=== PATIENT | male | born 1965 | race Caucasian/White ===

== ENCOUNTER → 2018-08-06 14:34 | Outpatient (CLI) | payer OTHER, SELFPAY ==
[2018-08-06 16:11] LABS: Alanine Aminotransferase 30 IU/L (21-72); Albumin 4.7 g/dL (3.5-5.0); Alkaline Phosphatase 45 U/L (38-126); Aspartate Aminotransferase 24 IU/L (17-59); BUN Creatinine Ratio 22.2 (6-22); Bilirubin Total 1.1 mg/dL (0.2-1.3); Blood Urea Nitrogen 20 mg/dL (9-20); Calcium 9.3 mg/dL (8.4-10.2); Carbon Dioxide 25 mmol/L (22-32); Chloride 104 mmol/L (98-107); Cholesterol 230 mg/dL (140-199); Estimated Glomerular Filt Rate > 60.0 mL/min (>60); Globulin 2.4 g/dL (1.7-4.1); Glucose 81 mg/dL (70-100); HDL Cholesterol 44 mg/dL (40-60); HEMOLYSIS < 15 (0-50); LDL Cholesterol Calculated 158 mg/dL (<100); Potassium 4.2 mmol/L (3.4-5.1); Sodium 140 mmol/L (137-145); Total Protein 7.1 g/dL (6.3-8.2); Triglycerides 140 mg/dL (35-150)
[2018-08-06 16:39] LABS: Prostate Specific Antigen Scrn 0.756 ng/mL (0.1-4.0)
[2018-08-06 16:56] LABS: Thyroid Stimulating Hormone 1.38 uIU/mL (0.47-4.68)
[2018-08-06 17:09] LABS: Appearance Urine UA CLEAR; Bilirubin Urine UA NEGATIVE (NEGATIVE); Color Urine UA YELLOW; Glucose Urine UA NEGATIVE (Negative); Ketones Urine UA NEGATIVE (NEGATIVE); Leukocyte Esterase Urine UA NEGATIVE (NEGATIVE); Nitrite Urine UA NEGATIVE (Negative); Occult Blood Urine UA TRACE-INTACT (Negative); Protein Urine UA NEGATIVE (Negative); Specific Gravity Urine UA >=1.030 (1.000-1.035); Urobilinogen Urine UA 0.2 E.U./dL (0.2); pH Urine UA 5.5 (4.5-8.0)
== END ==
PROVIDERS: PCP Family Medicine; Visit Provider Family Medicine
DX: E78.5 Hyperlipidemia, unspecified (principal); I10 Essential (primary) hypertension; Z12.5 Encounter for screening for malignant neoplasm of prostate; Z13.29 Encounter for screening for other suspected endocrine disorder; Z51.81 Encounter for therapeutic drug level monitoring
CPT/HCPCS: 36415; 80053; 80061; 81003; 84443; G0103

== ENCOUNTER → 2019-02-09 15:36 | Outpatient (CLI) | payer OTHER, SELFPAY ==
--- NOTE | 2019-02-09 15:40 | DI.US.S_ITS ---
PROCEDURE: US SCROTUM INDICATIONS: CYSTIC SWELLING TECHNIQUE: Real-time scanning was performed of the scrotum and testicles, with image documentation. Color and pulse Doppler interrogation was performed of both testicles. COMPARISON: None. FINDINGS: Right: Testicle is normal in size at 4.9 x 2.6 x 3.3 cm, and homogenous in echotexture. Epididymis is normal in overall size and morphology. No hydrocele or varicoceles. Overlying scrotal skin is normal in thickness. Left: Testicle is normal in size at 5.0 x 2.7 x 3.7 cm, and homogeneous in echotexture. Large left spermatocele measuring 7.0 x 3.5 cm No hydrocele or varicoceles. Overlying scrotal skin is normal in thickness. Doppler: Color and pulse Doppler demonstrate normal and symmetric arterial flow in both testicles. IMPRESSION: Large left spermatocele; otherwise normal appearance of the testicles bilaterally. Dictated by: Fco COOK Interpreted: Lauren Ferraro MD on 02/09/2019 at 16:19 Approved by: Lauren Ferraro MD, PhD on 02/09/2019 at 17:27
== END ==
PROVIDERS: PCP Family Medicine; Visit Provider Hospitalist
DX: N50.89 Other specified disorders of the male genital organs (principal); N43.40 Spermatocele of epididymis, unspecified
CPT/HCPCS: 76870

== ENCOUNTER → 2019-02-14 08:53 | Outpatient (CLI) | payer OTHER, SELFPAY ==
[2019-02-14 11:01] LABS: Alanine Aminotransferase 23 IU/L (21-72); Albumin 4.3 g/dL (3.5-5.0); Albumin Globulin Ratio 2.2 (1.0-2.8); Alkaline Phosphatase 40 U/L (38-126); Aspartate Aminotransferase 20 IU/L (17-59); BUN Creatinine Ratio 22.5 (6-22); Bilirubin Total 0.7 mg/dL (0.2-1.3); Blood Urea Nitrogen 18 mg/dL (9-20); Calcium 9.4 mg/dL (8.4-10.2); Carbon Dioxide 27 mmol/L (22-32); Chloride 103 mmol/L (98-107); Cholesterol 147 mg/dL (140-199); Estimated Glomerular Filt Rate > 60.0 mL/min (>60); Glucose 93 mg/dL (70-100); HDL Cholesterol 43 mg/dL (40-60); HEMOLYSIS < 15 (0-50); LDL Cholesterol Calculated 74 mg/dL (<100); Potassium 4.2 mmol/L (3.4-5.1); Sodium 139 mmol/L (137-145); Total Protein 6.3 g/dL (6.3-8.2); Triglycerides 152 mg/dL (35-150)
== END ==
PROVIDERS: PCP Family Medicine; Visit Provider Family Medicine
DX: E78.5 Hyperlipidemia, unspecified (principal); I10 Essential (primary) hypertension
CPT/HCPCS: 36415; 80053; 80061

== ENCOUNTER 2019-06-16 11:47 | Day surgery (SDC) | payer OTHER, SELFPAY ==
[2019-06-16 12:07] VITALS: BP 146/88; PULSE 99; RESP 20; TEMP 36.6; O2SAT 100; BMI 26.2
[2019-06-16] MEDS: SODIUM CHLORIDE 0.9% 1,000 ML 200 ML IV (12:14)
--- NOTE | 2019-06-16 12:58 | PM.HP.1 ---
History of Present Illness History of Present Illness Date Patient Seen: 06/16/19 Time Patient Seen: 13:00 Chief complaint: [id number] Narrative: Patient presents for colorectal screening. They have never had any previous examination for such. No personal or family history of colon cancer. On further history denies any recent gastrointestinal symptoms. No nausea, vomiting, abdominal pain, loss of appetite, unexplained weight loss, change in bowel habits, diarrhea, constipation, melena, hematochezia, or bright red blood per rectum. Patient History Medical History (Updated 06/16/19 @ 13:01 by Tommy Lamb MD) HTN (hypertension) (Inactive) Hyperlipidemia (Inactive) Spermatocele (Inactive) Family & Social History Social History: household members spouse Tobacco & Substance use: Smoking Status Never smoker Meds Home Medications and Allergies Home Medications Medication Instructions Recorded Confirmed Type atorvastatin 10 mg tablet 10 mg PO HS #90 tab 02/15/19 02/15/19 Rx lisinopril 10 mg tablet 10 mg PO QDAY #90 tab 02/15/19 02/15/19 Rx Allergies Allergy/AdvReac Type Severity Reaction Status Date / Time Corticosteroids Allergy Mild LIMB Verified 06/16/19 11:59 (Glucocorticoids) NUMBNESS [CORTICOSTEROIDS (GLUCOCORTICOIDS)] Review of Systems Review of Systems Narrative: A complete review of systems is negative except as noted in the HPI Exam Vital Signs (past 8 hours): - 06/16/19 12:07 Temperature 97.9 F Pulse Rate 99 H Respiratory Rate 20 Blood Pressure 146/88 H Pulse Oximetry 100 Oxygen Delivery Method Room Air Narrative Exam Narrative: General-no acute distress, well nourished HEENT-moist mucous membranes, no scleral icterus Neck-supple, no lymphadenopathy Chest- non labored respirations, clear to auscultation bilaterally Cardiac-regular rate no peripheral edema Abdomen-soft, nontender, non distended Extremities-warm, well perfused Neurological-alert and oriented, no focal deficits Assessment & Plan Assessment and plan (1) Screening for colon cancer: Current visit: Yes Status: Acute Assessment & Plan narrative: The patient requires colorectal screening and colonoscopy is recommended. Technical details were discussed. Risks, benefits, alternatives explained. Risks including but not limited to myocardial infarction, aspiration, bleeding, pain, missed lesion, incomplete examination, need for further radiographic studies, colonic perforation, and need for major abdominal surgery were discussed. All questions were answered to their satisfaction, and they are in agreement with this plan.
[2019-06-16] MEDS: fentaNYL 250 MCG/5 ML INJ IV (13:36)
[2019-06-16] MEDS: MIDAZOLAM 5 MG/5 ML VIAL IV (13:36)
--- NOTE | 2019-06-16 13:36 | PM.OP.ENDO ---
Operative Date/Time/Diagnoses Date of procedure: 06/16/19 Time of procedure: 13:36 Pre-op diagnosis: Screening colonoscopy Post-op diagnosis: same Procedure & Clinicians Study performed: Colonoscopy Same procedure as scheduled: Yes Indications: 53-year-old male no prior colonoscopy presents for routine screening. Surgeon: Tommy Lamb Procedure Notes SCOAP/Timeout: Performed Procedure in detail: Patient placed in left lateral decubitus position. Time out was performed. Procedural sedation was administered with Versed and Fentanyl. A rectal exam demonstrated no external hemorrhoids no internal masses. Colonoscopy scope was placed into the rectum and advanced through the colon to the cecum. The ileocecal valve was identified. The scope was then slowly withdrawn examining colon thoroughly in all directions. The colonoscopy was notable for the following 1. Grade 1 internal hemorrhoids. 2. The quality of prep excellent 3. No colon or rectal masses. Scope withdrawal time: 6 Sedation minutes: 20 Findings: diverticulosis and internal hemorrhoids Specimen(s): none sent Complications: none Impression: Normal colonoscopy Post-procedure Recommendations: Colonscopy in 10 years Disposition: same day surgery
[2019-06-16 13:37] VITALS: BP 125/85; PULSE 86; RESP 11; TEMP 36; O2SAT 96
[2019-06-16 13:42] VITALS: BP 111/78; PULSE 75; RESP 11; O2SAT 97
[2019-06-16 13:48] VITALS: BP 126/92; PULSE 97; RESP 16; O2SAT 98
[2019-06-16 14:06] VITALS: BP 118/78; PULSE 83; RESP 16; TEMP 36.4; O2SAT 96
== END 2019-06-16 14:09 | disposition home or self-care (01) ==
PROVIDERS: PCP Family Medicine; Visit Provider Surgery
PROC: 0DJD8ZZ Inspection of Lower Intestinal Tract, Via Natural or Artificial Opening Endoscopic (ICD-10-PCS; CPT 45378; principal; 2019-06-16 13:00)
DX: Z12.11 Encounter for screening for malignant neoplasm of colon (principal); I10 Essential (primary) hypertension; E78.5 Hyperlipidemia, unspecified; K64.0 First degree hemorrhoids; K57.30 Diverticulosis of large intestine without perforation or abscess without bleeding
CPT/HCPCS: 45378; 99152; J2250; J3010

== ENCOUNTER → 2020-04-27 11:33 | Outpatient (CLI) | payer OTHER, SELFPAY ==
[2020-04-27 12:04] LABS: Add Manual Diff / Slide Review NO; Basophils Absolute Auto 0 /uL (0-100); Basophils Percent Auto 0.7 % (0-2); Eosinophils Absolute Auto 100 /uL (0-450); Eosinophils Percent Auto 1.9 % (2-4); Hematocrit 46.5 % (41-53); Hemoglobin 15.8 g/dL (13.5-17.5); Lymphocytes Absolute Auto 1800 /uL (1100-4500); Lymphocytes Percent Auto 30.4 % (25-40); Mean Corpuscular HGB Conc 33.9 % (30-36); Mean Corpuscular Hemoglobin 31.7 PG (26-34); Mean Corpuscular Volume 93.5 fL (80-100); Monocytes Absolute Auto 700 /uL (0-900); Monocytes Percent Auto 11.4 % (3-14); Neutrophils Absolute Auto 3300 /uL (1500-7000); Neutrophils Percent Auto 55.6 % (50-75); Platelet Count 217 X10^3/uL (150-400); Red Blood Cell Count 4.97 X10^6/uL (4.5-5.9); Red Cell Distribution Width 12.8 % (11.6-14.8); White Blood Cell Count 5.8 X10^3/uL (4.5-11.0)
[2020-04-27 12:50] LABS: Appearance Urine UA CLEAR; Bilirubin Urine UA NEGATIVE (NEGATIVE); Color Urine UA YELLOW; Glucose Urine UA NEGATIVE (Negative); Ketones Urine UA NEGATIVE (NEGATIVE); Leukocyte Esterase Urine UA NEGATIVE (NEGATIVE); Nitrite Urine UA NEGATIVE (Negative); Occult Blood Urine UA 1+ (Negative); Protein Urine UA NEGATIVE (Negative); Specific Gravity Urine UA 1.025 (1.000-1.035); Urobilinogen Urine UA 0.2 E.U./dL (0.2)
[2020-04-27 12:52] LABS: Alanine Aminotransferase 23 IU/L (<50); Albumin 4.5 g/dL (3.5-5.0); Albumin Globulin Ratio 2.1 (1.0-2.8); Alkaline Phosphatase 43 U/L (38-126); Aspartate Aminotransferase 21 IU/L (17-59); Bilirubin Total 0.7 mg/dL (0.2-1.3); Blood Urea Nitrogen 21 mg/dL (9-20); Calcium 9.3 mg/dL (8.4-10.2); Carbon Dioxide 27 mmol/L (22-32); Chloride 105 mmol/L (98-107); Cholesterol 140 mg/dL (140-199); Estimated Glomerular Filt Rate > 60.0 mL/min (>60); Globulin 2.1 g/dL (1.7-4.1); Glucose 103 mg/dL (70-100); HDL Cholesterol 49 mg/dL (40-60); HEMOLYSIS < 15 (0-50); LDL Cholesterol Calculated 72 mg/dL (<100); Potassium 4.4 mmol/L (3.4-5.1); Sodium 140 mmol/L (137-145); Total Protein 6.6 g/dL (6.3-8.2); Triglycerides 93 mg/dL (35-150)
[2020-04-27 12:54] LABS: Bacteria Urine None Seen
[2020-04-27 13:08] LABS: RBC Urine 0-1/HPF (0-5/HPF); WBC Urine 0-1/HPF (0-5/HPF)
[2020-04-27 13:09] LABS: Amorphous Sediment Urine 1+; Culture Indicated Urine Cult Not Indicated
[2020-04-27 13:19] LABS: Prostate Specific Antigen Scrn 0.884 ng/mL (0.1-4.0)
== END ==
PROVIDERS: PCP Family Medicine; Referring Provider Family Medicine; Visit Provider Family Medicine
DX: I10 Essential (primary) hypertension (principal); E78.5 Hyperlipidemia, unspecified; N43.40 Spermatocele of epididymis, unspecified; Z12.5 Encounter for screening for malignant neoplasm of prostate
CPT/HCPCS: 36415; 80053; 80061; 81003; 81015; 84443; 85025; G0103